=== PATIENT | male | born 1985 | race African-American/Black ===

== ENCOUNTER → 2023-01-08 | Outpatient (CLI) | payer SELFPAY | END | disposition home or self-care (01) | LOC: EMPLOY 07:37 → RAD 07:37 | PROVIDERS: ATTEND Internal Medicine | DX: Z02.1 Encounter for pre-employment examination (principal) ==

== ENCOUNTER 2023-08-13 03:45 | Emergency (ER) | payer OTHER ==
[~2023-08-13] VITALS: Ht 187.9 cm; Wt 108.9 kg
[2023-08-13 04:06] LABS: BASO % 0.7 % (0.0-1.0); EOS # 0.4 10*3/uL (0.0-0.4); EOS % 10.6 % (1.0-4.0); HEMATOCRIT 43.9 % (42.0-52.0); LYMPH % 24.5 % (27.0-41.0); MEAN CELL VOLUME 91.1 fl (80.0-94.0); MEAN CORPUSCULAR HGB 29.5 pg (27.0-31.0); MEAN CORPUSCULAR HGB CONC 32.3 g/dl (33.0-37.0); MEAN PLATELET VOLUME 10.4 fl (9.6-12.3); MONO # 0.7 10*3/uL (0.1-1.0); MONO % 15.8 % (3.0-9.0); NEUT % 48.4 % (47.0-73.0); PLATELET COUNT AUTOMATED 172 10*3/uL (130-400); RED BLOOD COUNT 4.82 10*6/uL (4.50-5.90); RED CELL DISTRI WIDTH 12.4 % (0-14.5); WHITE BLOOD COUNT 4.2 10*3/uL (4.8-10.8)
[2023-08-13 04:26] LABS: ALKALINE PHOSPHATASE 62 U/L (46-116); BUN 12 mg/dl (9-23); CHLORIDE 104 mmol/L (98-107); POTASSIUM 3.8 mmol/L (3.4-5.1); SGPT/ALT 36 U/L (5-49); TOTAL PROTEIN 7.2 gm/dL (6.0-8.0)
[2023-08-13] MEDS ORDERED: AMOX-CLAV 875-1 EACH PO ×2 (05:30→05:50)
== END 2023-08-13 05:39 | disposition home or self-care (01) ==
LOC: ED 03:45
PROVIDERS: Emergency Medicine
DX: I88.9 Nonspecific lymphadenitis, unspecified (principal)